=== PATIENT | male | born 1940 | race Caucasian/White ===

== ENCOUNTER 2017-11-17 02:16 | Outpatient (CLI) | payer MEDICARE | END 2017-11-17 23:59 | disposition home or self-care (01) | LOC: DIABETIC 02:16 | PROVIDERS: ATTEND Specialist | DX: E11.65 Type 2 diabetes mellitus with hyperglycemia (principal) | CPT/HCPCS: G0108 ==

== ENCOUNTER 2018-02-16 04:41 | Outpatient (CLI) | payer MEDICARE | END 2018-02-16 23:59 | disposition home or self-care (01) | LOC: DIABETIC 04:41 | PROVIDERS: ATTEND Specialist | DX: E11.65 Type 2 diabetes mellitus with hyperglycemia (principal) | CPT/HCPCS: G0108 ==

== ENCOUNTER 2018-10-19 05:18 | Outpatient (CLI) | payer MEDICARE | END 2018-10-19 23:59 | disposition home or self-care (01) | LOC: DIABETIC 05:18 | PROVIDERS: ATTEND Specialist | DX: E11.65 Type 2 diabetes mellitus with hyperglycemia (principal) | CPT/HCPCS: G0108 ==

== ENCOUNTER 2018-11-16 11:07 | Emergency (ER) | payer MEDICARE ==
[~2018-11-16] VITALS: Ht 193 cm; Wt 143.2 kg
[2018-11-16] MEDS ORDERED: tamsulosin 0.4mg capsule PO ONE (12:45)
[2018-11-16] MEDS ORDERED: fluconazole 150mg tablet PO ONE (12:45)
[2018-11-16] MEDS ORDERED: LIDOcaine 2% 10ml TOPICAL JELLY (Urojet) MM ONE (12:55)
[2018-11-16 13:30] LABS: BASOPHILS # (AUTO) 0.2 X10'3 (0-0.2); BASOPHILS % (AUTO) 1.4 % (0-1); EOSINOPHILS # (AUTO) 0.2 X10'3 (0-0.9); EOSINOPHILS % (AUTO) 1.6 % (0-6); HEMATOCRIT 38.8 % (42.0-52.0); HEMOGLOBIN 12.9 g/dl (14.0-17.9); LYMPHOCYTES % (AUTO) 8.7 % (21-51); MEAN CORPUSCULAR HEMOGLOBIN 28.8 PG (27.0-31.0); MEAN CORPUSCULAR HGB CONC 33.4 g/dL (33.0-36.5); MEAN CORPUSCULAR VOLUME 86.4 FL (78-98); MEAN PLATELET VOLUME 7.1 FL (7.4-10.4); MONOCYTES # (AUTO) 1.3 X10'3 (0-0.9); MONOCYTES % (AUTO) 11.3 % (2-12); NEUTROPHILS # (AUTO) 8.8 X10'3 (1.8-7.7); PLATELET COUNT 276 X10'3 (140-440); RED BLOOD COUNT 4.49 X10'6 (4.70-6.10); RED CELL DISTRIBUTION WIDTH 14.1 % (11.5-14.5); WHITE BLOOD COUNT 11.4 X10'3 (4.5-11.0)
[2018-11-16 13:44] LABS: ALANINE AMINOTRANSFERASE 33 U/L (12-78); ALBUMIN 3.3 G/DL (3.4-5.0); ALBUMIN/GLOBULIN RATIO 0.9 (1.1-1.5); ALKALINE PHOSPHATASE 162 IU/L (46-116); ANION GAP 8 (8-16); ASPARTATE AMINO TRANSFERASE 43 U/L (10-37); BILIRUBIN,TOTAL 0.7 MG/DL (0.1-1.0); BLOOD UREA NITROGEN 34 MG/DL (7-18); BUN/CREATININE RATIO 18.3 (5.4-32.0); CALCIUM 8.6 MG/DL (8.5-10.1); CHLORIDE 100 MMOL/L (99-107); CREATININE 1.86 MG/DL (0.60-1.10); GLUCOSE 351 MG/DL (70-104); SODIUM 137 MMOL/L (135-145); TOTAL CARBON DIOXIDE 28.7 MMOL/L (24-32); TOTAL PROTEIN 6.8 G/DL (6.4-8.2); eGFR 35 ML/MIN
[2018-11-16 13:54] LABS: POTASSIUM 5.1 MMOL/L (3.5-5.1)
[2018-11-16 14:14] LABS: CLARITY,URINE SLIGHTLY CLOUDY (Clear); COLOR,URINE YELLOW (Yellow); GLUCOSE, URINE >=1000 mg/dl (Neg); KETONES,URINE NEGATIVE (Neg); LEUKOCYTE ESTERASE ,URINE NEGATIVE (Neg); NITRITES, URINE NEGATIVE (Neg); OCCULT BLOOD,URINE LARGE (Neg); PH,URINE 5.5 (4.8-8.0); PROTEIN,URINE 30 mg/dl (Neg); UROBILINOGEN,URINE 0.2 E.U/dL (0.2-1.0)
[2018-11-16 14:39] LABS: UA COLLECTION TYPE FOLEY CATH
[2018-11-16 14:40] LABS: RBC,URINE TNTC /HPF (0-2)
[2018-11-16 14:41] LABS: BACTERIA,URINE FEW /HPF (Neg); SQUAMOUS EPITHELIAL CELL,UR NONE SEEN /LPF (FEW)
--- NOTE | 2018-11-16 14:47 | NUR ---
700CC URINE AFTER MOTA PLACED
--- NOTE | 2018-11-16 14:50 | NUR ---
WHEN MOTA WAS PLACED BLOOD CAME OUT FOLLOWED BY BLOODY URINE. CATH WAS ADVANCED FAR POSSIBLE, ABLE TO INFLATE BALLON WITH 5CC AFTER 5CC CAUSE THE PT PAIN, MD WAS NOTIFIED THAT ONLY 5 CC WAS PLACED.
--- NOTE | 2018-11-16 16:30 | NUR ---
PT CONTINUES TO HAVE BLOODY URINE, MOTA IRRIGATED WITH 100CC. AFTER THE FIRST 50 CC WAS IRRIGATED NO URINE WAS ABLE TO BE DRAWN OUT. AFTER INFUSING ANOTHER 40CC URINE BEGAN TO FLOW. MD HILLMAN
[2018-11-16] MEDS ORDERED: fentaNYL/PF 50MCG/1 ML 2ML syringe IV ONE (17:20)
[2018-11-16 18:27] VITALS: BP 155/77
[2018-11-16] MEDS ORDERED: HYDROmorphone 1 mg/ml syringe IV ONE (18:50)
[2018-11-16] MEDS ORDERED: ceFAZolin 1GM/D5W- ADD-VANTAGE 50 ML IV ONE (19:25)
== END 2018-11-16 20:16 | disposition home or self-care (01) ==
LOC: ER 11:09
DX: S37.39XA Other injury of urethra, initial encounter (principal); R33.9 Retention of urine, unspecified; R73.9 Hyperglycemia, unspecified; X58.XXXA Exposure to other specified factors, initial encounter; Y93.89 Activity, other specified; Y92.89 Other specified places as the place of occurrence of the external cause; Y99.9 Unspecified external cause status
CPT/HCPCS: 36415; 51702; 74176; 80053; 81001; 85025; 87088; 96365; 96375; 99284; J0690; J1170; J3010

== ENCOUNTER 2019-01-18 00:59 | Inpatient (IN) | payer MEDICARE ==
[~2019-01-18] VITALS: Ht 188 cm; Wt 120.0 kg
[2019-01-18 02:20] LABS: CLARITY,URINE CLEAR (Clear); COLOR,URINE YELLOW (Yellow); GLUCOSE, URINE >=1000 mg/dl (Neg); KETONES,URINE 15 mg/dl (Neg); LEUKOCYTE ESTERASE ,URINE NEGATIVE (Neg); NITRITES, URINE POSITIVE (Neg); OCCULT BLOOD,URINE SMALL (Neg); PROTEIN,URINE NEGATIVE (Neg); UROBILINOGEN,URINE 0.2 E.U/dL (0.2-1.0)
[2019-01-18 02:22] LABS: UA COLLECTION TYPE FOLEY CATH
[2019-01-18 02:29] LABS: SQUAMOUS EPITHELIAL CELL,UR FEW /LPF (FEW)
[2019-01-18 02:31] LABS: BACTERIA,URINE 3+ /HPF (Neg); RBC,URINE 0-2 /HPF (0-2)
[2019-01-18 02:34] LABS: URINE AMPHETAMINE SCREEN NEGATIVE (Neg); URINE BARBITUATE SCREEN NEGATIVE (Neg); URINE BENZODIAZEPINES SCREEN NEGATIVE (Neg); URINE CANNABINOID SCREEN NEGATIVE (Neg); URINE COCAINE SCREEN NEGATIVE (Neg); URINE METHADONE SCREEN NEGATIVE (Neg); URINE OPIATE SCREEN POSITIVE (Neg); URINE PHENCYCLIDINE SCREEN NEGATIVE (Neg)
[2019-01-18] MEDS: ciprofloxacin lact 400MG/200ML 200 ML IV SCH ×3 (03:20→21:06)
[2019-01-18 03:53] LABS: BASOPHILS # (AUTO) 0.1 X10'3 (0-0.2); BASOPHILS % (AUTO) 0.4 % (0-1); EOSINOPHILS % (AUTO) 0 % (0-6); HEMATOCRIT 45.2 % (42.0-52.0); HEMOGLOBIN 14.9 g/dl (14.0-17.9); LYMPHOCYTES # (AUTO) 0.7 X10'3 (1.1-4.8); LYMPHOCYTES % (AUTO) 3.8 % (21-51); MEAN CORPUSCULAR HEMOGLOBIN 28.3 PG (27.0-31.0); MEAN CORPUSCULAR HGB CONC 32.9 g/dL (33.0-36.5); MEAN CORPUSCULAR VOLUME 86.1 FL (78-98); MEAN PLATELET VOLUME 7.8 FL (7.4-10.4); MONOCYTES # (AUTO) 1.2 X10'3 (0-0.9); NEUTROPHILS # (AUTO) 15.6 X10'3 (1.8-7.7); NEUTROPHILS % (AUTO) 88.8 % (42-75); PLATELET COUNT 306 X10'3 (140-440); RED BLOOD COUNT 5.25 X10'6 (4.70-6.10); RED CELL DISTRIBUTION WIDTH 13.6 % (11.5-14.5); WHITE BLOOD COUNT 17.6 X10'3 (4.5-11.0)
[2019-01-18 04:05] LABS: PARTIAL THROMBOPLASTIN TIME 33 SECONDS (22-32)
[2019-01-18 04:07] LABS: ALANINE AMINOTRANSFERASE 26 U/L (12-78); ALBUMIN 3.1 G/DL (3.4-5.0); ALBUMIN/GLOBULIN RATIO 0.8 (1.1-1.5); ALKALINE PHOSPHATASE 179 IU/L (46-116); ANION GAP 13 (8-16); ASPARTATE AMINO TRANSFERASE 17 U/L (10-37); BILIRUBIN,TOTAL 0.6 MG/DL (0.1-1.0); BLOOD UREA NITROGEN 75 MG/DL (7-18); BUN/CREATININE RATIO 29.4 (5.4-32.0); CALCIUM 9.5 MG/DL (8.5-10.1); CHLORIDE 89 MMOL/L (99-107); CREATININE 2.55 MG/DL (0.60-1.10); POTASSIUM 5.1 MMOL/L (3.5-5.1); SODIUM 128 MMOL/L (135-145); TOTAL CARBON DIOXIDE 25.6 MMOL/L (24-32); eGFR 24 ML/MIN
[2019-01-18 04:10] LABS: ETHANOL < 0.010 GM/DL (0.0-0.010); TROPONIN I 0.09 NG/ML (0.0-0.05)
[2019-01-18 04:24] LABS: GLUCOSE 822 MG/DL (70-104)
[2019-01-18] MEDS ORDERED: potassium Cl 40MEQ/NS 500ml 500 ML IV PRN ×2 (04:40)
[2019-01-18] MEDS ORDERED: mag hydrox/Alum hydrox/simeth 30ml oral suspension PO PRN (04:40)
[2019-01-18] MEDS ORDERED: normal saline 1000ML IV soln IVB ONE (04:40)
[2019-01-18] MEDS ORDERED: magnesium hydroxide 30ml (MOM) UD suspension PO PRN (04:40)
[2019-01-18] MEDS ORDERED: dextrose 50%-water 50ml dispensing syringe IV PRN (04:40)
[2019-01-18] MEDS ORDERED: CefTRIAXone 2gm/D5W 50ml 50 ML IV ONE (04:40)
[2019-01-18] MEDS ORDERED: potassium Cl 20 mEq SR tablet PO PRN (04:40)
[2019-01-18] MEDS ORDERED: insulin regular, human 10 units/0.1 ml syringe IV ONE (04:40)
[2019-01-18] MEDS ORDERED: ondansetron/PF 4mg/2ml inj IV PRN (04:40)
[2019-01-18] MEDS ORDERED: acetaminophen 325mg tablet PO PRN ×2 (04:40)
[2019-01-18] MEDS ORDERED: HYDR-4383 PO (04:44)
[2019-01-18] MEDS ORDERED: DILT180C95 PO (04:44)
[2019-01-18] MEDS ORDERED: CHLO25TA10 (04:44)
[2019-01-18] MEDS ORDERED: RAMI5CAP65 PO (04:44)
[2019-01-18] MEDS ORDERED: INSU300I (04:45)
[2019-01-18] MEDS ORDERED: NOVRI SQ (04:45)
[2019-01-18] MEDS: normal saline 1000ml 1,000 ML IV SCH ×3 (04:52→20:45)
--- NOTE | 2019-01-18 05:04 | NUR ---
PATIENTS SON PHONE # ALYCE TUBBS [phone], [facility] # [phone]
[2019-01-18] MEDS: insulin regular, human 100 UNIT in normal saline 100ml IV soln 99 ML IV SCH ×4 (05:26→19:44)
[2019-01-18] MEDS: K and/or MAG REPLACEMENT MC SCH (08:00)
[2019-01-18] MEDS: diltiazem CD 180mg cap (once-daily) PO SCH (08:53)
[2019-01-18] MEDS: lisinopril 10 MG tablet PO SCH (08:53)
[2019-01-18] MEDS: enoxaparin 30mg/0.3ml syringe SUBCUT SCH (08:54)
--- NOTE | 2019-01-18 10:35 | NUR ---
Insulin infusion rate increased to 3.6 units/hr at this time per protocol. Spoke with pharmacist Anh confirming bolus humalog sq = infusion rate of 3units per infusion rate at this time. Dr Pedroza made aware of BG >600, stated okay to follow protocol, also made aware of Ciprofloxacin (see emar) in D5W, per pharmacist Anh dextrose concentration should not increase BG significantly and patient is closely monitored at this time.
[2019-01-18] MEDS: insulin Lispro (HumaLOG) vial - multi-dose SQ SCH ×4 (11:05→15:43)
--- NOTE | 2019-01-18 12:05 | NUR ---
INSULIN DRIP TITRATED UP TO 4.3 UNITS/HR AT THIS TIME PER PROTOCOL.
--- NOTE | 2019-01-18 13:29 | NUR ---
INSULIN DRIP TITRATED UP TO 5.2 UNITS/HR AT THIS TIME PER INSULIN PROTOCOL FOR BS 496. DR ESCOTO MADE AWARE.
[2019-01-18 13:57] LABS: ALBUMIN 2.4 G/DL (3.4-5.0); ANION GAP 8 (8-16); BLOOD UREA NITROGEN 70 MG/DL (7-18); BUN/CREATININE RATIO 29.7 (5.4-32.0); CALCIUM 8.4 MG/DL (8.5-10.1); CHLORIDE 96 MMOL/L (99-107); CREATININE 2.36 MG/DL (0.60-1.10); MAGNESIUM 2.1 MG/DL (1.5-2.4); PHOSPHORUS 3.2 MG/DL (2.3-4.5); POTASSIUM 3.6 MMOL/L (3.5-5.1); SODIUM 133 MMOL/L (135-145); TOTAL CARBON DIOXIDE 29.3 MMOL/L (24-32); eGFR 27 ML/MIN
[2019-01-18 14:03] LABS: GLUCOSE 479 MG/DL (70-104)
--- NOTE | 2019-01-18 14:40 | NUR ---
INSULIN DRIP TITRATED DOWN TO 4.2 UNITS/HR AT THIS TIME PER INSULIN PROTOCOL FOR BG 407.
--- NOTE | 2019-01-18 15:15 | NUR ---
CARLOS GU AT BEDSIDE AT THIS TIME.
--- NOTE | 2019-01-18 15:44 | NUR ---
INSULIN DRIP TITRATED UP TO 5 UNITS/HR AT THIS TIME PER INSULIN PROTOCOL FOR BG 397.
--- NOTE | 2019-01-18 18:19 | NUR ---
INSULIN DRIP DECREASED A THIS TIME TO 4.1 UNITS/HR FOR BG 280 PER INSULIN PROTOCOL.
--- NOTE | 2019-01-18 18:30 | NUR ---
Patient in room PCU 3018. I have received report from RICH Tsai and had the opportunity to ask questions and assume patient care.
--- NOTE | 2019-01-18 18:50 | NUR ---
Patient arrived on a gurney and was transferred to hospital bed. He has a Rt. humerus fracture, with sling in place. He had large bowel movement and was cleaned up. I will continue to monitor.
[2019-01-18 19:00] VITALS: BP 113/46
[2019-01-18 20:15] LABS: HEMOGLOBIN A1C 10.4 % (4.5-6.2)
[2019-01-18] MEDS: lactobacillus rhamnosus 10,000 MMU CELLS/CAPSULE PO SCH (20:42)
[2019-01-18 22:00] VITALS: BP 103/50
[2019-01-18 22:12] LABS: ALBUMIN 2.3 G/DL (3.4-5.0); ANION GAP 4 (8-16); BLOOD UREA NITROGEN 78 MG/DL (7-18); BUN/CREATININE RATIO 28.4 (5.4-32.0); CALCIUM 8.6 MG/DL (8.5-10.1); CHLORIDE 101 MMOL/L (99-107); CREATININE 2.75 MG/DL (0.60-1.10); GLUCOSE 186 MG/DL (70-104); POTASSIUM 3.9 MMOL/L (3.5-5.1); SODIUM 135 MMOL/L (135-145); TOTAL CARBON DIOXIDE 30.5 MMOL/L (24-32); eGFR 22 ML/MIN
[2019-01-19] MEDS: insulin regular, human 100 UNIT in normal saline 100ml IV soln 99 ML IV SCH ×10 (01:59→14:27)
[2019-01-19 02:00] VITALS: BP 124/52
[2019-01-19] MEDS ORDERED: CefTRIAXone/D5W-Rocephin 1gm 50 ML IV SCH (05:00)
[2019-01-19 06:00] VITALS: BP 128/72
--- NOTE | 2019-01-19 06:23 | NUR ---
Problems reprioritized. Patient report given, questions answered & plan of care reviewed with RICH Cheung.
--- NOTE | 2019-01-19 06:34 | NUR ---
Patient in room PCU 3018. I have received report from Jenelle VILLANUEVA and had the opportunity to ask questions and assume patient care. Patient resting comfortably in bed. In no acute distress. Will continue to monitor.
[2019-01-19 06:36] LABS: BASOPHILS % (AUTO) 0.3 % (0-1); EOSINOPHILS # (AUTO) 0.1 X10'3 (0-0.9); EOSINOPHILS % (AUTO) 0.7 % (0-6); HEMATOCRIT 36.6 % (42.0-52.0); HEMOGLOBIN 12.2 g/dl (14.0-17.9); LYMPHOCYTES # (AUTO) 1.5 X10'3 (1.1-4.8); LYMPHOCYTES % (AUTO) 11.3 % (21-51); MEAN CORPUSCULAR HEMOGLOBIN 27.6 PG (27.0-31.0); MEAN CORPUSCULAR HGB CONC 33.2 g/dL (33.0-36.5); MEAN CORPUSCULAR VOLUME 83.1 FL (78-98); MEAN PLATELET VOLUME 7.7 FL (7.4-10.4); MONOCYTES # (AUTO) 1.3 X10'3 (0-0.9); MONOCYTES % (AUTO) 9.7 % (2-12); NEUTROPHILS # (AUTO) 10.5 X10'3 (1.8-7.7); PLATELET COUNT 285 X10'3 (140-440); RED BLOOD COUNT 4.41 X10'6 (4.70-6.10); WHITE BLOOD COUNT 13.4 X10'3 (4.5-11.0)
[2019-01-19 06:47] LABS: ALBUMIN 2.1 G/DL (3.4-5.0); ANION GAP 9 (8-16); BLOOD UREA NITROGEN 74 MG/DL (7-18); CALCIUM 8.4 MG/DL (8.5-10.1); CHLORIDE 102 MMOL/L (99-107); CHOLESTEROL 83 MG/DL (0-200); CREATININE 2.39 MG/DL (0.60-1.10); GLUCOSE 123 MG/DL (70-104); HDL CHOLESTEROL 28 MG/DL (35-60); LDL CHOLESTEROL 40 MG/DL (50-100); SODIUM 139 MMOL/L (135-145); TOTAL CARBON DIOXIDE 27.6 MMOL/L (24-32); TRIGLYCERIDES 137 MG/DL (20-135); eGFR 26 ML/MIN
[2019-01-19] MEDS: K and/or MAG REPLACEMENT MC SCH (08:00)
[2019-01-19] MEDS: ciprofloxacin lact 400MG/200ML 200 ML IV SCH ×2 (08:33→19:17)
[2019-01-19] MEDS: normal saline 1000ml 1,000 ML IV SCH (08:34)
[2019-01-19] MEDS: enoxaparin 30mg/0.3ml syringe SUBCUT SCH (08:35)
[2019-01-19] MEDS: lisinopril 10 MG tablet PO SCH (08:37)
[2019-01-19] MEDS: lactobacillus rhamnosus 10,000 MMU CELLS/CAPSULE PO SCH ×2 (08:38→19:16)
[2019-01-19] MEDS: diltiazem CD 180mg cap (once-daily) PO SCH (08:38)
[2019-01-19] MEDS: potassium Cl 20 mEq SR tablet PO PRN ×2 (08:39→13:27)
--- NOTE | 2019-01-19 09:54 | NUR ---
Orders from Dr. Pedroza: Orrtanna 5 PO Q4H prn for moderate pain. Lantus 20 units now. D/C insulin gtt 2 hours after administration of SQ lantus.
[2019-01-19] MEDS ORDERED: dextrose 50%-water 50ml dispensing syringe IV PRN ×2 (09:55)
[2019-01-19] MEDS ORDERED: glucagon, human recombinant 1mg kit SUBCUT PRN (09:55)
[2019-01-19] MEDS ORDERED: dextrose ORAL solution 15 GM/59 ML bottle PO PRN ×2 (09:55)
[2019-01-19 11:00] VITALS: BP 119/58
[2019-01-19] MEDS: HYDROcodone/acetaminophen 5mg/325mg tablet PO PRN ×2 (11:29→19:16)
--- NOTE | 2019-01-19 11:53 | NUR ---
DM consult: Pt with A1c 10.4. Pt A/O x 2 per physical assessment, DM ed not appropriate at this time. Pt admit with hyperglycemia, acute dehydration, UTI, hyponatremia, and AMS. Urinalysis positive for ketones. Per H&P pt on an insulin drip without bolus d/t elevated BG of 822 at admit. Pt currently on a CHO controlled diet with documented 75% intake first meal likely meeting nutrient needs. [facility] 01/18. Will continue to follow. Recommendations: 1) Continue CHO controlled diet 2) DM ed prior to d/c 3) Wt per rx Addendum: 01/19/19 at [address] Amended: Links added.
[2019-01-19] MEDS: insulin Lispro (HumaLOG) vial - multi-dose SQ SCH ×5 (12:06→21:08)
[2019-01-19] MEDS: insulin glargine (Lantus) pen - multi-dose SQ SCH (12:36)
--- NOTE | 2019-01-19 12:41 | NUR ---
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 He doesn't recall how or when it happened but I found it on his patient tray. Cannot determine where this tooth broke, he has many teeth broken off at the gingiva.
--- NOTE | 2019-01-19 13:39 | NUR ---
Paged Dr. Pedroza: PAGER ID: [phone] MESSAGE: RE: Skye [phone] RE: Lis Sherman [phone]. Patient has extremely dry skin on bilateral lower legs. Can you order eucerin for patient please? Thank you.
--- NOTE | 2019-01-19 16:25 | NUR ---
Paged Dr. Pedroza: PAGER ID: [phone] MESSAGE: Skye Lisandra [phone]. RE: Lis Sherman [phone]. Patient had 5 beat run of V-tach.
[2019-01-19 18:00] VITALS: BP 109/48
--- NOTE | 2019-01-19 18:06 | NUR ---
Problems reprioritized. Patient report given, questions answered & plan of care reviewed with Lyudmila VILLANUEVA.
--- NOTE | 2019-01-19 18:30 | NUR ---
Patient in room PCU 3018. I have received report from RICH Hernández and had the opportunity to ask questions and assume patient care. Patient sitting up in bed visiting with family, he is more alert and less confused today. I will continue to monitor.
--- NOTE | 2019-01-19 18:47 | NUR ---
[place] documentation: I have reviewed and agree with all interventions, assessments performed and documented by Francisca VILLANUEVA,. [place] Medication Administration: For this medication-pass time frame, all medication were reviewed, dispensed, administered and documented per hospital policy by Francisca VILLANUEVA.
[2019-01-19] MEDS: mineral oil/petrolatum, white cream 113gm jar TP SCH ×2 (19:17→21:10)
[2019-01-19 22:00] VITALS: BP 127/57
[2019-01-20 02:00] VITALS: BP 132/50
[2019-01-20 05:45] LABS: BASOPHILS # (AUTO) 0.1 X10'3 (0-0.2); EOSINOPHILS # (AUTO) 0.2 X10'3 (0-0.9); EOSINOPHILS % (AUTO) 1.7 % (0-6); HEMATOCRIT 37.1 % (42.0-52.0); HEMOGLOBIN 12.9 g/dl (14.0-17.9); LYMPHOCYTES # (AUTO) 1.3 X10'3 (1.1-4.8); LYMPHOCYTES % (AUTO) 11.6 % (21-51); MEAN CORPUSCULAR HEMOGLOBIN 28.8 PG (27.0-31.0); MEAN CORPUSCULAR HGB CONC 34.6 g/dL (33.0-36.5); MEAN CORPUSCULAR VOLUME 83.3 FL (78-98); MEAN PLATELET VOLUME 7.7 FL (7.4-10.4); MONOCYTES # (AUTO) 1.2 X10'3 (0-0.9); MONOCYTES % (AUTO) 10.7 % (2-12); NEUTROPHILS # (AUTO) 8.2 X10'3 (1.8-7.7); PLATELET COUNT 272 X10'3 (140-440); RED BLOOD COUNT 4.46 X10'6 (4.70-6.10); RED CELL DISTRIBUTION WIDTH 13.8 % (11.5-14.5)
[2019-01-20 06:00] VITALS: BP 140/54
[2019-01-20 06:03] LABS: ALBUMIN 2.1 G/DL (3.4-5.0); ANION GAP 8 (8-16); BLOOD UREA NITROGEN 66 MG/DL (7-18); CALCIUM 8.1 MG/DL (8.5-10.1); CHLORIDE 99 MMOL/L (99-107); CREATININE 2.13 MG/DL (0.60-1.10); GLUCOSE 284 MG/DL (70-104); POTASSIUM 3.8 MMOL/L (3.5-5.1); SODIUM 133 MMOL/L (135-145); TOTAL CARBON DIOXIDE 26.4 MMOL/L (24-32); eGFR 30 ML/MIN
--- NOTE | 2019-01-20 06:22 | NUR ---
Problems reprioritized. Patient report given, questions answered & plan of care reviewed with RICH Marquez.
[2019-01-20] MEDS: lactobacillus rhamnosus 10,000 MMU CELLS/CAPSULE PO SCH ×2 (07:54→20:28)
[2019-01-20] MEDS: lisinopril 10 MG tablet PO SCH (07:54)
[2019-01-20] MEDS: diltiazem CD 180mg cap (once-daily) PO SCH (07:55)
[2019-01-20] MEDS: ciprofloxacin lact 400MG/200ML 200 ML IV SCH ×2 (07:58→20:27)
[2019-01-20] MEDS: enoxaparin 30mg/0.3ml syringe SUBCUT SCH (07:59)
[2019-01-20] MEDS: mineral oil/petrolatum, white cream 113gm jar TP SCH ×3 (08:00→21:00)
[2019-01-20] MEDS: K and/or MAG REPLACEMENT MC SCH (08:00)
[2019-01-20] MEDS: insulin Lispro (HumaLOG) vial - multi-dose SQ SCH ×3 (08:30→20:52)
[2019-01-20] MEDS: HYDROcodone/acetaminophen 5mg/325mg tablet PO PRN ×2 (10:22→22:53)
--- NOTE | 2019-01-20 10:32 | NUR ---
Patient has small open skin are on left anterior ankle. Place Optifoam dressing over area.
[2019-01-20 11:00] VITALS: BP 130/59
--- NOTE | 2019-01-20 12:49 | NUR ---
Sent page to Dr. Pedroza informing him of patients UA culture and sensitivity showing positive for E-Coli.
[2019-01-20 15:00] VITALS: BP 115/52
--- NOTE | 2019-01-20 17:18 | NUR ---
Patient's heels were slightly reddened. Applied Optifoam dressings to heels and floated them on pillows. Heels are looking less red at this time.
--- NOTE | 2019-01-20 18:19 | NUR ---
Problems reprioritized. Patient report given, questions answered & plan of care reviewed with RICH Gray.
[2019-01-20 18:30] VITALS: BP 134/51
[2019-01-20] MEDS: insulin glargine (Lantus) pen - multi-dose SQ SCH (20:49)
[2019-01-20] MEDS ORDERED: tamsulosin 0.4mg capsule PO SCH (21:00)
[2019-01-20 22:30] VITALS: BP 139/56
[2019-01-21 03:00] VITALS: BP 148/64
[2019-01-21 06:00] VITALS: BP 150/67
[2019-01-21 06:08] LABS: BASOPHILS # (AUTO) 0.1 X10'3 (0-0.2); BASOPHILS % (AUTO) 0.7 % (0-1); EOSINOPHILS # (AUTO) 0.2 X10'3 (0-0.9); EOSINOPHILS % (AUTO) 2.6 % (0-6); HEMATOCRIT 38.1 % (42.0-52.0); HEMOGLOBIN 12.8 g/dl (14.0-17.9); LYMPHOCYTES # (AUTO) 1.4 X10'3 (1.1-4.8); LYMPHOCYTES % (AUTO) 17.2 % (21-51); MEAN CORPUSCULAR HEMOGLOBIN 28.1 PG (27.0-31.0); MEAN CORPUSCULAR HGB CONC 33.6 g/dL (33.0-36.5); MEAN CORPUSCULAR VOLUME 83.5 FL (78-98); MEAN PLATELET VOLUME 7.6 FL (7.4-10.4); MONOCYTES % (AUTO) 12.3 % (2-12); NEUTROPHILS # (AUTO) 5.4 X10'3 (1.8-7.7); NEUTROPHILS % (AUTO) 67.2 % (42-75); PLATELET COUNT 262 X10'3 (140-440); RED BLOOD COUNT 4.57 X10'6 (4.70-6.10); RED CELL DISTRIBUTION WIDTH 13.7 % (11.5-14.5)
[2019-01-21 06:28] LABS: ALBUMIN 2.1 G/DL (3.4-5.0); ANION GAP 5 (8-16); BLOOD UREA NITROGEN 52 MG/DL (7-18); BUN/CREATININE RATIO 29.9 (5.4-32.0); CHLORIDE 104 MMOL/L (99-107); CREATININE 1.74 MG/DL (0.60-1.10); GLUCOSE 225 MG/DL (70-104); POTASSIUM 3.9 MMOL/L (3.5-5.1); SODIUM 138 MMOL/L (135-145); TOTAL CARBON DIOXIDE 28.6 MMOL/L (24-32); eGFR 38 ML/MIN
[2019-01-21] MEDS: HYDROcodone/acetaminophen 5mg/325mg tablet PO PRN ×2 (07:25→12:14)
[2019-01-21] MEDS: diltiazem CD 180mg cap (once-daily) PO SCH (07:25)
[2019-01-21] MEDS: lactobacillus rhamnosus 10,000 MMU CELLS/CAPSULE PO SCH (07:25)
[2019-01-21] MEDS: ciprofloxacin lact 400MG/200ML 200 ML IV SCH (07:26)
[2019-01-21] MEDS: enoxaparin 30mg/0.3ml syringe SUBCUT SCH (07:26)
[2019-01-21] MEDS: lisinopril 10 MG tablet PO SCH (07:26)
[2019-01-21] MEDS: K and/or MAG REPLACEMENT MC SCH (08:00)
--- NOTE | 2019-01-21 08:58 | NUR ---
Patient in room PCU 3018. I have received report from RICH Gray and RICH Pierce and had the opportunity to ask questions and assume patient care. Will continue to monitor.
[2019-01-21] MEDS: mineral oil/petrolatum, white cream 113gm jar TP SCH ×2 (09:16→12:16)
[2019-01-21] MEDS: insulin Lispro (HumaLOG) vial - multi-dose SQ SCH ×2 (09:19→13:52)
[2019-01-21 11:11] VITALS: BP 117/53
--- NOTE | 2019-01-21 11:16 | NUR ---
Sent to [facility] MESSAGE: room 3018A, Lis Sherman: Cris Pedroza, are we able to order a shoulder immobilizer for this patient? Thank you, Estela and Tata. Trying to obtain a shoulder immobilizer for this patient before discharge; per Dr. Pedroza
--- NOTE | 2019-01-21 11:20 | NUR ---
Sent message to [facility] to see if we could obtain a shoulder immobilizer.
--- NOTE | 2019-01-21 11:54 | NUR ---
Reassessment: Pt with hyperosmolar hyperglycemia with no ketoacidosis per MD notes. IV insulin has been d/c'ed and pt on glycemic protocol. Pt remains confused and A/O x 3 per physical assessment, DM ed remains not appropriate at this time. Pt continues with good PO intake 100% on CHO controlled diet meeting nutrient needs. [facility] 01/19. Will continue to follow. Recommendations: 1) Continue CHO controlled diet 2) DM ed prior to d/c 3) Wt per rx Addendum: 01/21/19 at [address] Amended: Links added.
--- NOTE | 2019-01-21 12:22 | NUR ---
Finisher Operator Grayson brought a shoulder immobilizing sling. We applied to patient and he says it feels much better.
--- NOTE | 2019-01-21 12:32 | NUR ---
Applied new Optifoam dressing to anterior lateral ankle.
--- NOTE | 2019-01-21 12:47 | NUR ---
Patient would like me to contact his son to let him know of his most recent discharge and follow up planning. I will call Dixon at [phone].
--- NOTE | 2019-01-21 14:50 | NUR ---
Patient's family took patients phone and osman tooth with them out of the hopsital. RICH Payton
[2019-01-21 15:00] VITALS: BP 108/46
--- NOTE | 2019-01-21 15:57 | NUR ---
Called in report to Jose Alejandro at [facility], will transfer patient at 1630.
--- NOTE | 2019-01-21 16:29 | NUR ---
Sent to [facility] MESSAGE: room 3018 Lis Luna: Hello, patient just had 7 beats of V- tach. Thank you, Tata and Estela
--- NOTE | 2019-01-21 16:30 | NUR ---
Patients daughter in law called and stated the no longer wanted to have their father transferred [facility]. We explained that at this time [facility] may be their only option. Patient's daughter in law agreed to continue to send him to [facility] and they will look into other centers on their own.
--- NOTE | 2019-01-21 16:59 | NUR ---
Patient was picked up by [facility] and [facility] [place].
[2019-01-22] MEDS ORDERED: enoxaparin 40mg/0.4ml syringe SQ SCH (08:00)
== END 2019-01-21 16:59 | DRG 698 ==
LOC: ER 00:59 → PCU 3S 04:46 → CMPBEDREQ 20:00
PROVIDERS: ADMIT Hospitalist; ATTEND Hospitalist
DX: T83.518A Infection and inflammatory reaction due to other urinary catheter, initial encounter (principal); E11.00 Type 2 diabetes mellitus with hyperosmolarity without nonketotic hyperglycemic-hyperosmolar coma (NKHHC); G92 Toxic encephalopathy; S42.295A Other nondisplaced fracture of upper end of left humerus, initial encounter for closed fracture; E44.1 Mild protein-calorie malnutrition; E87.1 Hypo-osmolality and hyponatremia; N17.9 Acute kidney failure, unspecified; N18.4 Chronic kidney disease, stage 4 (severe); R29.6 Repeated falls; B96.20 Unspecified Escherichia coli [E. coli] as the cause of diseases classified elsewhere; W18.39XA Other fall on same level, initial encounter; E66.01 Morbid (severe) obesity due to excess calories; E87.6 Hypokalemia; Y73.3 Surgical instruments, materials and gastroenterology and urology devices (including sutures) associated with adverse incidents; E86.0 Dehydration; N13.9 Obstructive and reflux uropathy, unspecified; R74.8 Abnormal levels of other serum enzymes; Y93.89 Activity, other specified; Y92.89 Other specified places as the place of occurrence of the external cause; Y99.8 Other external cause status; Z68.34 Body mass index [BMI] 34.0-34.9, adult
CPT/HCPCS: 36415; 70450; 71045; 73030; 74176; 80048; 80053; 80061; 80305; 80320; 81001; 82948; 83036; 83735; 84100; 84484; 85025; 85610; 85730; 87070; 87077; 87088; 87186; 93005; 97110; 97162; 97530; 99285; G0378; J0696; J0744; J1650; J1815; J7030

== ENCOUNTER 2019-09-26 19:05 | Inpatient (IN) | payer MEDICARE ==
[~2019-09-26] VITALS: Ht 190.5 cm; Wt 131.0 kg
[~2019-09-26 19:05] MED LIST: CHLO25TA10; DILT-36 PO; HYDR-4383 PO; INSU300I; NOVRI SQ; RAMI5CAP65 PO
[2019-09-26 20:03] LABS: CLARITY,URINE CLOUDY (Clear); COLOR,URINE YELLOW (Yellow); GLUCOSE, URINE NEGATIVE (Neg); KETONES,URINE NEGATIVE (Neg); LEUKOCYTE ESTERASE ,URINE SMALL (Neg); NITRITES, URINE NEGATIVE (Neg); OCCULT BLOOD,URINE MODERATE (Neg); PH,URINE 5.5 (4.8-8.0); PROTEIN,URINE 30 mg/dl (Neg); UROBILINOGEN,URINE 0.2 E.U/dL (0.2-1.0)
[2019-09-26 20:09] LABS: BASOPHILS % (AUTO) 0.6 % (0-1); EOSINOPHILS # (AUTO) 0.2 X10'3 (0-0.9); EOSINOPHILS % (AUTO) 2.3 % (0-6); HEMATOCRIT 33.8 % (42.0-52.0); LYMPHOCYTES % (AUTO) 13.1 % (21-51); MEAN CORPUSCULAR HEMOGLOBIN 27.4 PG (27.0-31.0); MEAN CORPUSCULAR HGB CONC 32.7 g/dL (33.0-36.5); MEAN CORPUSCULAR VOLUME 83.9 FL (78-98); MEAN PLATELET VOLUME 6.9 FL (7.4-10.4); MONOCYTES # (AUTO) 0.7 X10'3 (0-0.9); MONOCYTES % (AUTO) 9.9 % (2-12); NEUTROPHILS # (AUTO) 5.5 X10'3 (1.8-7.7); NEUTROPHILS % (AUTO) 74.1 % (42-75); PLATELET COUNT 219 X10'3 (140-440); RED BLOOD COUNT 4.03 X10'6 (4.70-6.10); RED CELL DISTRIBUTION WIDTH 15.9 % (11.5-14.5); WHITE BLOOD COUNT 7.5 X10'3 (4.5-11.0)
[2019-09-26 20:10] LABS: UA COLLECTION TYPE FOLEY CATH
[2019-09-26 20:16] LABS: PARTIAL THROMBOPLASTIN TIME 55 SECONDS (22-32)
[2019-09-26 20:20] LABS: ALANINE AMINOTRANSFERASE 24 U/L (12-78); ALBUMIN 3.6 G/DL (3.4-5.0); ALKALINE PHOSPHATASE 759 IU/L (46-116); ANION GAP 3 (8-16); ASPARTATE AMINO TRANSFERASE 20 U/L (10-37); BILIRUBIN,TOTAL 0.3 MG/DL (0.1-1.0); BLOOD UREA NITROGEN 24 MG/DL (7-18); BUN/CREATININE RATIO 18.9 (5.4-32.0); CALCIUM 8.5 MG/DL (8.5-10.1); CHLORIDE 104 MMOL/L (99-107); CREATININE 1.27 MG/DL (0.60-1.10); GLUCOSE 110 MG/DL (70-104); POTASSIUM 4.3 MMOL/L (3.5-5.1); SODIUM 142 MMOL/L (135-145); TOTAL PROTEIN 7.3 G/DL (6.4-8.2); eGFR 55 ML/MIN
[2019-09-26 20:22] LABS: BACTERIA,URINE 3+ /HPF (Neg); RBC,URINE 0-2 /HPF (0-2); SQUAMOUS EPITHELIAL CELL,UR FEW /LPF (FEW)
[2019-09-26 20:23] LABS: YEAST MODERATE /HPF (NEGATIVE)
--- NOTE | 2019-09-26 20:27 | NUR ---
BG 74 DOWN FROM 103, RECIEVED VERBAL ORDER FROM DR LOVE FOR 1AMP D50. PT IS ALSO SITING UP IN BED EATING A SANDWICH AND DRINKING ORANGE JUICE.
[2019-09-26] MEDS ORDERED: FURO40TA4 PO (20:28)
[2019-09-26] MEDS ORDERED: NOVRI SQ (20:28)
[2019-09-26] MEDS ORDERED: INSU300I SQ (20:28)
[2019-09-26] MEDS ORDERED: MULT-933 PO (20:28)
[2019-09-26] MEDS ORDERED: ATOR80TA PO (20:28)
[2019-09-26] MEDS ORDERED: FLO0.4C PO (20:28)
[2019-09-26] MEDS ORDERED: FINA5TAB11 PO (20:28)
[2019-09-26] MEDS ORDERED: POTA10TA36 PO (20:28)
[2019-09-26] MEDS ORDERED: LOSA25TA96 PO (20:28)
[2019-09-26] MEDS ORDERED: METO25TA6 PO (20:28)
[2019-09-26] MEDS ORDERED: ISOS30TA9 PO (20:28)
[2019-09-26] MEDS ORDERED: dextrose 50%-water 50ml dispensing syringe IV ONE (20:30)
[2019-09-26] MEDS ORDERED: piperacillin/tazo 3.375gm/50ml 50 ML IV ONE (21:35)
[2019-09-26] MEDS ORDERED: magnesium hydroxide 30ml (MOM) UD suspension PO PRN (22:25)
[2019-09-26] MEDS ORDERED: ondansetron/PF 4mg/2ml inj IV PRN (22:25)
[2019-09-26] MEDS ORDERED: mag hydrox/Alum hydrox/simeth 30ml oral suspension PO PRN (22:25)
[2019-09-26] MEDS ORDERED: acetaminophen 325mg tablet PO PRN (22:25)
[2019-09-26] MEDS ORDERED: dextrose 50%-water 50ml dispensing syringe IV PRN ×2 (22:30)
[2019-09-26] MEDS ORDERED: glucagon, human recombinant 1mg kit SUBCUT PRN (22:30)
[2019-09-26] MEDS ORDERED: dextrose ORAL solution 15 GM/59 ML bottle PO PRN ×2 (22:30)
[2019-09-26] MEDS ORDERED: MESSAGE TO PHARMACY PO ONE (22:30)
[2019-09-26 22:45] LABS: HEMOGLOBIN A1C 6.7 % (4.5-6.2)
--- NOTE | 2019-09-26 23:55 | NUR ---
Patient in room ED 6. I have received report from Jai ZAPATA RN, and had the opportunity to ask questions and assume patient care. Addendum: 09/26/19 at 2357 by Linda Lopez RN Amended: Links added.
--- NOTE | 2019-09-27 00:35 | NUR ---
pt arrived to floor via gurney.
[2019-09-27 00:36] VITALS: BP 185/63
[2019-09-27 06:02] LABS: BASOPHILS % (AUTO) 0.6 % (0-1); EOSINOPHILS # (AUTO) 0.3 X10'3 (0-0.9); EOSINOPHILS % (AUTO) 3.7 % (0-6); HEMATOCRIT 28.3 % (42.0-52.0); HEMOGLOBIN 9.2 g/dl (14.0-17.9); LYMPHOCYTES # (AUTO) 1.1 X10'3 (1.1-4.8); LYMPHOCYTES % (AUTO) 16.6 % (21-51); MEAN CORPUSCULAR HEMOGLOBIN 27.4 PG (27.0-31.0); MEAN CORPUSCULAR HGB CONC 32.4 g/dL (33.0-36.5); MEAN CORPUSCULAR VOLUME 84.3 FL (78-98); MEAN PLATELET VOLUME 6.9 FL (7.4-10.4); MONOCYTES # (AUTO) 0.9 X10'3 (0-0.9); MONOCYTES % (AUTO) 13.6 % (2-12); NEUTROPHILS # (AUTO) 4.4 X10'3 (1.8-7.7); NEUTROPHILS % (AUTO) 65.5 % (42-75); PLATELET COUNT 194 X10'3 (140-440); RED BLOOD COUNT 3.36 X10'6 (4.70-6.10); WHITE BLOOD COUNT 6.7 X10'3 (4.5-11.0)
[2019-09-27 06:27] LABS: ALANINE AMINOTRANSFERASE 19 U/L (12-78); ALBUMIN 2.8 G/DL (3.4-5.0); ALBUMIN/GLOBULIN RATIO 0.8 (1.1-1.5); ALKALINE PHOSPHATASE 619 IU/L (46-116); ANION GAP 5 (8-16); ASPARTATE AMINO TRANSFERASE 17 U/L (10-37); BILIRUBIN,TOTAL 0.3 MG/DL (0.1-1.0); BLOOD UREA NITROGEN 22 MG/DL (7-18); BUN/CREATININE RATIO 17.6 (5.4-32.0); CALCIUM 8.1 MG/DL (8.5-10.1); CHLORIDE 105 MMOL/L (99-107); CREATININE 1.25 MG/DL (0.60-1.10); GLUCOSE 211 MG/DL (70-104); POTASSIUM 4.2 MMOL/L (3.5-5.1); SODIUM 141 MMOL/L (135-145); TOTAL CARBON DIOXIDE 31.4 MMOL/L (24-32); TOTAL PROTEIN 6.1 G/DL (6.4-8.2); eGFR 56 ML/MIN
[2019-09-27 08:00] VITALS: BP 145/61
[2019-09-27] MEDS: tamsulosin 0.4mg capsule PO SCH (08:42)
[2019-09-27] MEDS: isosorbide mononitrate 30mg tab.SR.24H PO SCH (08:42)
[2019-09-27] MEDS: multivitamins, therapeutics tablet PO SCH (08:43)
[2019-09-27] MEDS: metoprolol tartrate 25mg tablet PO SCH ×2 (08:43→20:57)
[2019-09-27] MEDS: losartan 25mg tablet PO SCH (08:43)
[2019-09-27] MEDS: heparin, porcine 5000 units/ml vial SQ SCH ×2 (08:44→20:56)
[2019-09-27] MEDS: finasteride 5mg tablet PO SCH (09:41)
--- NOTE | 2019-09-27 11:11 | NUR ---
DM consult: Pt with A1c 6.7 down from 10.4 in January of this year per records. DM education not warranted at this time. Will continue to follow. Addendum: 09/27/19 at [address] Amended: Links added.
[2019-09-27] MEDS: insulin Lispro (HumaLOG) vial - multi-dose SQ SCH ×2 (13:56→19:21)
--- NOTE | 2019-09-27 14:56 | NUR ---
I have reviewed and agree with all interventions, assessments performed and documented by RICH Dao
[2019-09-27 18:15] VITALS: BP 157/71
--- NOTE | 2019-09-27 18:44 | NUR ---
Patient in room KAYLEEN 354. I have received report from Sylwia RN and Mer RN and had the opportunity to ask questions and assume patient care.
--- NOTE | 2019-09-27 18:54 | NUR ---
Problems reprioritized. Patient report given, questions answered & plan of care reviewed with Sada VILLANUEVA.
[2019-09-27] MEDS ORDERED: atorvastatin 20mg tablet PO SCH (21:00)
[2019-09-27] MEDS: CefTRIAXone 2gm/D5W 50ml 50 ML IV SCH (23:22)
[2019-09-28 00:15] VITALS: BP 151/72
--- NOTE | 2019-09-28 01:45 | NUR ---
Pts bed is broken, hob stuck in elevated position engineering needs to fix. pt instructed need to be moved to a different bed, at first pt refuses, then states he will transfer to a new be. pt transferred to room 358B in new bed, assist x4 with slide board. Bed alarm is on. pt sat 87 to 88% on r/a refuses oxygen states "to hot" mudification added, pt states will put on when he is done "priming it" Bed alarm is on. pt is near nurses station. Addendum: 09/28/19 at 0216 by Kyra Wilson RN Amended: Links added.
--- NOTE | 2019-09-28 02:30 | NUR ---
Pt's O2 saturation=90-92%, pt states he wants to go home and refuses to use 4L NC. Educated pt importance of using NC. Will continue to monitor pt.
[2019-09-28 06:16] LABS: BASOPHILS % (AUTO) 0.7 % (0-1); EOSINOPHILS # (AUTO) 0.4 X10'3 (0-0.9); EOSINOPHILS % (AUTO) 6.1 % (0-6); HEMATOCRIT 28.2 % (42.0-52.0); HEMOGLOBIN 9.4 g/dl (14.0-17.9); LYMPHOCYTES # (AUTO) 1.4 X10'3 (1.1-4.8); LYMPHOCYTES % (AUTO) 23.7 % (21-51); MEAN CORPUSCULAR HEMOGLOBIN 27.6 PG (27.0-31.0); MEAN CORPUSCULAR HGB CONC 33.2 g/dL (33.0-36.5); MEAN CORPUSCULAR VOLUME 83.1 FL (78-98); MEAN PLATELET VOLUME 6.9 FL (7.4-10.4); MONOCYTES # (AUTO) 0.7 X10'3 (0-0.9); MONOCYTES % (AUTO) 12.9 % (2-12); NEUTROPHILS # (AUTO) 3.3 X10'3 (1.8-7.7); NEUTROPHILS % (AUTO) 56.6 % (42-75); PLATELET COUNT 214 X10'3 (140-440); RED BLOOD COUNT 3.39 X10'6 (4.70-6.10); WHITE BLOOD COUNT 5.8 X10'3 (4.5-11.0)
[2019-09-28 06:41] LABS: ALANINE AMINOTRANSFERASE 18 U/L (12-78); ALBUMIN 2.8 G/DL (3.4-5.0); ALBUMIN/GLOBULIN RATIO 0.8 (1.1-1.5); ALKALINE PHOSPHATASE 607 IU/L (46-116); ANION GAP 4 (8-16); ASPARTATE AMINO TRANSFERASE 14 U/L (10-37); BILIRUBIN,TOTAL 0.4 MG/DL (0.1-1.0); BLOOD UREA NITROGEN 21 MG/DL (7-18); BUN/CREATININE RATIO 18.3 (5.4-32.0); CALCIUM 8.2 MG/DL (8.5-10.1); CHLORIDE 105 MMOL/L (99-107); CREATININE 1.15 MG/DL (0.60-1.10); GLUCOSE 123 MG/DL (70-104); SODIUM 143 MMOL/L (135-145); TOTAL CARBON DIOXIDE 34.2 MMOL/L (24-32); TOTAL PROTEIN 6.1 G/DL (6.4-8.2); eGFR 61 ML/MIN
--- NOTE | 2019-09-28 06:41 | NUR ---
Patient in room KAYLEEN 358. I have received report from Sada VILLANUEVA and had the opportunity to ask questions and assume patient care.
--- NOTE | 2019-09-28 06:48 | NUR ---
Problems reprioritized. Patient report given, questions answered & plan of care reviewed with RICH Devlin.
[2019-09-28 07:00] VITALS: BP 199/85
[2019-09-28] MEDS: metoprolol tartrate 25mg tablet PO SCH (07:51)
[2019-09-28] MEDS: CefTRIAXone 2gm/D5W 50ml 50 ML IV SCH (07:51)
[2019-09-28] MEDS: finasteride 5mg tablet PO SCH (07:52)
[2019-09-28] MEDS: multivitamins, therapeutics tablet PO SCH (07:52)
[2019-09-28] MEDS: losartan 25mg tablet PO SCH (07:52)
[2019-09-28] MEDS: isosorbide mononitrate 30mg tab.SR.24H PO SCH (07:52)
[2019-09-28] MEDS: tamsulosin 0.4mg capsule PO SCH (07:52)
[2019-09-28] MEDS: heparin, porcine 5000 units/ml vial SQ SCH (07:56)
[2019-09-28 10:35] VITALS: BP 158/65
[2019-09-28 11:24] VITALS: BP 142/57
[2019-09-28] MEDS ORDERED: LEVO500T2 PO (11:43)
--- NOTE | 2019-09-28 11:46 | NUR ---
Spoke with son Dixon over phone and confirmed that pt has HH, PT, and home O2 already set up.
[2019-09-28] MEDS ORDERED: FURO20TA4 PO (16:22)
== END 2019-09-28 14:23 | disposition home health service (06) | DRG 194 ==
LOC: ER 19:05 → ED HOLD 22:23 → EDBEDREQ 23:40 → SUR 3N 23:58
PROVIDERS: ADMIT Internal Medicine; ATTEND Internal Medicine
DX: J18.9 Pneumonia, unspecified organism (principal); C79.51 Secondary malignant neoplasm of bone; N17.9 Acute kidney failure, unspecified; C61 Malignant neoplasm of prostate; E86.0 Dehydration; E11.649 Type 2 diabetes mellitus with hypoglycemia without coma; G47.33 Obstructive sleep apnea (adult) (pediatric); R68.0 Hypothermia, not associated with low environmental temperature; I50.9 Heart failure, unspecified; I87.8 Other specified disorders of veins; N40.0 Benign prostatic hyperplasia without lower urinary tract symptoms
CPT/HCPCS: 36415; 71045; 80053; 81001; 82948; 83036; 83605; 83735; 83880; 84145; 85025; 85610; 85730; 87040; 87077; 87081; 87088; 87186; 93005; 96365; 96375; 99285; G0378; J0696; J1644; J1815; J2543